=== PATIENT | female | born 1935 | race Hispanic/Latino ===

== ENCOUNTER 2018-02-21 15:38 | Emergency (ER) | payer MEDICARE ==
[~2018-02-21 15:38] MED LIST: AEC81 PO; BISA5TAB12 PO; ENAL20TA PO; FOLI-74 PO; GABA-529 PO; LUBI24CA2 PO; PRAV20TA4 PO; RANI150C4 PO
[2018-02-21 16:09] LABS: APPEARANCE,URINE Clear (CLEAR); BILIRUBIN,URINE Negative (NEGATIVE); COLOR,URINE Yellow (YELLOW); GLUCOSE, URINE (UA) Negative (NEGATIVE); KETONES,URINE Negative (NEGATIVE); LEUKOCYTE ESTERASE ,URINE Negative (NEGATIVE); NITRATE,URINE Negative (NEGATIVE); OCCULT BLOOD,URINE Trace (NEGATIVE); PROTEIN,URINE Negative (NEGATIVE); UROBILINOGEN,URINE 0.2 mg/dL (0.2-1.0)
[2018-02-21 16:23] LABS: BASOPHILS % (AUTO) 0.5 % (0.0-5.0); EOSINOPHILS % (AUTO) 2.5 % (0.0-8.0); LYMPHOCYTES % (AUTO) 22.8 % (21.0-51.0); MEAN CORPUSCULAR HEMOGLOBIN 32.2 pg (27.0-33.0); MEAN CORPUSCULAR HGB CONC 34.7 g/dL (32.0-36.0); MEAN CORPUSCULAR VOLUME 92.8 fL (79-99); MONOCYTES % (AUTO) 7.7 % (3.0-13.0); NEUTROPHILS % (AUTO) 66.5 % (40.0-77.0); PLATELET COUNT (AUTO) 217 K/uL (130-400); RED BLOOD CELL COUNT(AUTO) 3.88 MIL/uL (4.00-5.50); WHITE BLOOD COUNT (AUTO) 5.8 K/uL (4.8-10.8)
[2018-02-21 16:32] LABS: CREATININE 0.8 mg/dL (0.5-1.5); POTASSIUM 3.7 mmol/L (3.5-5.1)
[2018-02-21 16:37] LABS: BILIRUBIN,TOTAL 0.5 mg/dL (0.2-1.0)
[2018-02-21 16:58] LABS: BACTERIA,URINE Rare /HPF (None Seen); RBC,URINE 0-1 /HPF (0-1); SQUAMOUS EPITHELIAL CELL,UR Rare /HPF (0-2); WBC,URINE 0-1 /HPF (0-1)
[2018-02-21] MEDS ORDERED: LIDOCAINE 5% TOPICAL PATCH TP ONE (18:20)
== END 2018-02-21 18:59 | disposition home or self-care (01) ==
LOC: EDH 15:38
DX: M54.6 Pain in thoracic spine (principal); M54.5 Low back pain; R10.9 Unspecified abdominal pain; R30.0 Dysuria; R31.9 Hematuria, unspecified; I10 Essential (primary) hypertension; E78.5 Hyperlipidemia, unspecified
CPT/HCPCS: 36415; 74176; 80053; 81001; 85025

== ENCOUNTER 2018-09-30 16:53 | Emergency (ER) | payer MEDICARE ==
[2018-09-30 17:38] LABS: APPEARANCE,URINE Clear (CLEAR); BASOPHILS % (AUTO) 0.4 % (0.0-5.0); BILIRUBIN,URINE Negative (NEGATIVE); COLOR,URINE Yellow (YELLOW); EOSINOPHILS % (AUTO) 2.1 % (0.0-8.0); GLUCOSE, URINE (UA) Negative (NEGATIVE); HEMATOCRIT 37.8 % (36-48); KETONES,URINE Negative (NEGATIVE); LEUKOCYTE ESTERASE ,URINE Small (NEGATIVE); LYMPHOCYTES % (AUTO) 26.7 % (21.0-51.0); MEAN CORPUSCULAR HEMOGLOBIN 31.9 pg (27.0-33.0); MEAN CORPUSCULAR HGB CONC 33.7 g/dL (32.0-36.0); MEAN CORPUSCULAR VOLUME 94.6 fL (79-99); MONOCYTES % (AUTO) 6.1 % (3.0-13.0); NEUTROPHILS % (AUTO) 64.7 % (40.0-77.0); NITRATE,URINE Negative (NEGATIVE); OCCULT BLOOD,URINE Negative (NEGATIVE); PH,URINE 6.5 (5.0-8.0); PLATELET COUNT (AUTO) 212 K/uL (130-400); PROTEIN,URINE Negative (NEGATIVE); RED CELL DISTRIBUTION WIDTH 13.2 % (11.0-15.5)
[2018-09-30 17:46] LABS: BACTERIA,URINE Rare /HPF (None Seen); RBC,URINE 0-1 /HPF (0-1); SQUAMOUS EPITHELIAL CELL,UR Rare /HPF (0-2)
[2018-09-30 17:53] LABS: CREATININE 0.7 mg/dL (0.5-1.5); POTASSIUM 3.7 mmol/L (3.5-5.1)
[2018-09-30 17:55] LABS: INR 0.95 (0.85-1.15); PARTIAL THROMBOPLASTIN TIME 24.8 SEC (26.3-35.5)
[2018-09-30 17:58] LABS: ALBUMIN 3.6 g/dL (3.5-5.0); BILIRUBIN,TOTAL 0.4 mg/dL (0.2-1.0); TOTAL PROTEIN, SERUM 6.7 g/dL (6.0-8.3)
[2018-09-30] MEDS ORDERED: HYOSCYAMINE SULFATE 0.125 MG TAB.SUBL SL ONE (18:32)
== END 2018-09-30 18:59 | disposition home or self-care (01) ==
LOC: EDH 16:53
DX: I10 Essential (primary) hypertension (principal); R10.84 Generalized abdominal pain; R63.4 Abnormal weight loss; E78.5 Hyperlipidemia, unspecified; Z90.710 Acquired absence of both cervix and uterus; Z90.89 Acquired absence of other organs
CPT/HCPCS: 36415; 71045; 74176; 80053; 81001; 82150; 83690; 84484; 85025; 85610; 85730; 93005

== ENCOUNTER → 2019-08-15 | Outpatient (CLI) | payer MEDICARE ==
[~2019-08-15] MED LIST changes: +IOHEXOL 350 MG/ML 100ML INFUS..BTL IV ONE
== END | disposition home or self-care (01) ==
LOC: OIH 07:50
PROVIDERS: ATTEND Internal Medicine Gastroenterology
DX: K76.0 Fatty (change of) liver, not elsewhere classified (principal); R16.0 Hepatomegaly, not elsewhere classified; K57.30 Diverticulosis of large intestine without perforation or abscess without bleeding; K59.00 Constipation, unspecified; K86.89 Other specified diseases of pancreas; I51.7 Cardiomegaly; M47.814 Spondylosis without myelopathy or radiculopathy, thoracic region; R63.4 Abnormal weight loss
CPT/HCPCS: 71270; 74178; Q9967

== ENCOUNTER 2022-09-20 09:13 | Emergency (ER) | payer MEDICARE ==
[~2022-09-20] VITALS: Ht 149.9 cm; Wt 45.4 kg
[~2022-09-20 09:13] MED LIST changes: +BISA-151 PO; -BISA5TAB12 PO; -ENAL20TA PO; +ENAL20TA18 PO; -IOHEXOL 350 MG/ML 100ML INFUS..BTL IV ONE
[2022-09-20 09:42] LABS: BASOPHILS % (AUTO) 0.5 % (0.0-5.0); EOSINOPHILS % (AUTO) 2.2 % (0.0-8.0); HEMATOCRIT 41.2 % (36-48); LYMPHOCYTES % (AUTO) 17.3 % (21.0-51.0); MEAN CORPUSCULAR HEMOGLOBIN 31.2 pg (27.0-33.0); MEAN CORPUSCULAR HGB CONC 33.5 g/dL (32.0-36.0); NEUTROPHILS % (AUTO) 72.6 % (40.0-77.0); PLATELET COUNT (AUTO) 222 K/uL (130-400); RED BLOOD CELL COUNT(AUTO) 4.43 MIL/uL (4.00-5.50); RED CELL DISTRIBUTION WIDTH 12.8 % (11.0-15.5); WHITE BLOOD COUNT (AUTO) 7.3 K/uL (4.8-10.8)
[2022-09-20 09:54] LABS: ALBUMIN 4.1 g/dL (3.5-5.0); TOTAL PROTEIN, SERUM 7.7 g/dL (6.0-8.3)
[2022-09-20 10:13] LABS: CREATININE 0.8 mg/dL (0.5-1.5)
[2022-09-20] MEDS ORDERED: METH4TAB3 PO (13:06)
[2022-09-20 13:09] VITALS: BP 132/78
== END 2022-09-20 13:27 | disposition home or self-care (01) ==
LOC: EDH 09:13
DX: S39.012A Strain of muscle, fascia and tendon of lower back, initial encounter (principal); M79.18 Myalgia, other site; F41.9 Anxiety disorder, unspecified; F03.90 Unspecified dementia, unspecified severity, without behavioral disturbance, psychotic disturbance, mood disturbance, and anxiety; E78.00 Pure hypercholesterolemia, unspecified; Z79.82 Long term (current) use of aspirin; Z79.899 Other long term (current) drug therapy; Z98.890 Other specified postprocedural states; W19.XXXA Unspecified fall, initial encounter; Y93.89 Activity, other specified; Y92.89 Other specified places as the place of occurrence of the external cause; Y99.8 Other external cause status
CPT/HCPCS: 36415; 72170; 80053; 85025; 93005